=== PATIENT | female | born 1940 | race Caucasian/White ===

== ENCOUNTER 2017-06-07 20:01 | Emergency (ER) | payer MEDICARE, BC ==
[2017-06-07 20:06] VITALS: PULSE 79; RESP 18; O2SAT 98
[2017-06-07 20:19] VITALS: BMI 19.3
[2017-06-07 20:22] VITALS: BP 123/86; TEMP 98.3
--- NOTE | 2017-06-07 20:56 | C.PDOC ---
History Of Present Illness 77 y/o female presents to ED with c/o left knee pain for "years" which worsened over the last 3 days. Today, patient states that she felt a sharp pain in the left knee while getting off the bus. Worse with ambulation. Denies direct trauma, changes in sensation, or other associated symptoms. Time Seen by Provider: 06/07/17 20:40 Chief Complaint (Nursing): Lower Extremity Problem/Injury History Per: Patient, Family (son), Licensed Clinician (son) History/Exam Limitations: no limitations Onset/Duration Of Symptoms: Hrs, Persistent Current Symptoms Are (Timing): Worse Recent travel outside of the [place]: No Past Medical History Reviewed: Historical Data, Nursing Documentation, Vital Signs Vital Signs: Last Vital Signs Temp 98.3 F 06/07/17 20:05 Pulse 79 06/07/17 20:05 Resp 18 06/07/17 20:05 BP 123/86 06/07/17 20:05 Pulse Ox 98 06/07/17 21:21 Surgical History: Appendectomy Family History: States: Unknown Family Hx - Social History Hx Tobacco Use: No Hx Alcohol Use: No Hx Substance Use: No - Immunization History Hx Tetanus Toxoid Vaccination: No Hx Influenza Vaccination: Yes Hx Pneumococcal Vaccination: Yes Review Of Systems Except As Marked, All Systems Reviewed And Found Negative. Constitutional: Negative for: Fever, Chills Respiratory: Negative for: Cough Musculoskeletal: Positive for: Other (Left Knee Pain) Skin: Negative for: Rash Neurological: Negative for: Weakness, Numbness Physical Exam - Physical Exam Appears: Non-toxic, No Acute Distress Skin: Normal Color, Warm, Dry Head: Atraumatic, Normacephalic Eye(s): bilateral: Normal Inspection, EOMI Nose: Normal Oral Mucosa: Moist Neck: Normal ROM, Supple Chest: Symmetrical Respiratory: No Accessory Muscle Use Gastrointestinal/Abdominal: Soft, No Tenderness Back: Normal Inspection Extremity: Normal ROM, Tenderness (diffuse), Capillary Refill (< 2 sec. ), No Deformity, No Swelling Extremity: Bilateral: Normal Color And Temperature Pulses: Left Dorsalis Pedis: Normal, Right Dorsalis Pedis: Normal Neurological/Psych: Oriented x3, Normal Motor, Normal Sensation ED Course And Treatment O2 Sat by Pulse Oximetry: 98 (RA) Pulse Ox Interpretation: Normal Progress Note: Left knee x-rays ordered and reviewed; negative for acute fx. Tylenol given. Knee brace apllied by geotechnical department manager. Offered crutches, pt erquested cane. Instructed outpt follow up. Disposition - Disposition Referrals: Deisy Norris [Primary Care Provider] - Mauricio Finch III, MD [Staff Provider] - Disposition: HOME/ ROUTINE Disposition Time: 21:19 Condition: STABLE Additional Instructions: Vaya a lange mdico o la clnica en 1-3 kilgore sin falta, para mas evaluacin. [place] los medicamentos divine indicado. Volver a la gail de emergencia en cualquier momento si los sntomas persisten o empeoran. 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 - Scribe Statement The provider has reviewed the documentation as recorded by the Scribe SM All medical record entries made by the Scribe were at my direction and personally dictated by me. I have reviewed the chart and agree that the record accurately reflects my personal performance of the history, physical exam, medical decision making, and the department course for this patient. I have also personally directed, reviewed, and agree with the discharge instructions and disposition.
--- NOTE | 2017-06-08 08:37 | RAD ---
PROCEDURE: Left Knee Radiographs. HISTORY: Pain. COMPARISON: None. FINDINGS: BONES: . No fracture. JOINTS: Medial femoral tibial mild osteoarthritis. JOINT EFFUSION: None. OTHER FINDINGS: None. IMPRESSION: Mild osteoarthrosis medial femoral tibial compartment
== END 2017-06-07 21:45 | disposition home or self-care (01) ==
LOC: SUPCPDRO 20:01 → C.ER 20:01
DX: S83.92XA Sprain of unspecified site of left knee, initial encounter (principal); X58.XXXA Exposure to other specified factors, initial encounter

== ENCOUNTER 2018-07-24 19:41 | Emergency (ER) | payer MEDICARE, BC ==
[2018-07-24 19:41] VITALS: BMI 19.3
[2018-07-24] MEDS ORDERED: Aspirin 325 mg EC Tablets PO STA (20:08)
--- NOTE | 2018-07-24 20:08 | C.PDOC ---
Time Seen by Provider: 07/24/18 20:07 Chief Complaint (Nursing): Chest Pain Past Medical History Reviewed: Historical Data, Nursing Documentation, Vital Signs Vital Signs: Last Vital Signs Temp 99.5 F 07/24/18 19:44 Pulse 15 L 07/24/18 19:44 Resp 20 07/24/18 19:44 BP 123/92 H 07/24/18 19:44 Pulse Ox 97 07/24/18 19:44 Surgical History: Appendectomy Family History: States: No Known Family Hx - Social History Hx Tobacco Use: No Hx Alcohol Use: No Hx Substance Use: No - Immunization History Hx Tetanus Toxoid Vaccination: No Hx Influenza Vaccination: Yes Hx Pneumococcal Vaccination: Yes ED Course And Treatment ECG: Interpreted By Me, Viewed By Me ECG Rhythm: Sinus Rhythm (95), Nonspecific Changes O2 Sat by Pulse Oximetry: 97 Pulse Ox Interpretation: Normal - Radiology CXR: Interpreted by Me, Viewed By Me Disposition Counseled Patient/Family Regarding: Studies Performed, Diagnosis - Disposition Disposition Time: 20:08 Condition: FAIR Forms: [employer] [facility] (Urdu)
[2018-07-24 20:20] LABS: BASO % 0.7 % (0.0-2.0); EOS # 0.2 K/uL (0.0-0.7); EOS % 4.1 % (0.0-4.0); HEMOGLOBIN 11.9 g/dL (11.0-16.0); LYMPH # 1.5 K/uL (1.0-4.3); LYMPH % 26.8 % (20.0-40.0); MEAN CORPUSCULAR HEMOGLOBIN 27.2 pg (27.0-31.0); MEAN CORPUSCULAR HGB CONC 33.3 g/dL (33.0-37.0); MEAN PLATELET VOLUME 9.7 fL (7.2-11.7); MONO # 0.7 K/uL (0.0-0.8); MONO % 12.8 % (0.0-10.0); NEUT # 3.2 K/uL (1.8-7.0); NEUT % 55.6 % (50.0-75.0); NRBC % 0.1 % (0.0-2.0); RBC 4.36 Mil/uL (3.80-5.20); RED CELL DISTRIBUTION WIDTH 15.1 % (11.5-14.5); WHITE BLOOD COUNT 5.8 K/uL (4.8-10.8)
[2018-07-24 20:23] LABS: MEAN CELL VOLUME 81.7 fL (81.0-99.0)
[2018-07-24 20:30] LABS: PROTHROMBIN TIME 10.5 SECONDS (9.7-12.2)
[2018-07-24 20:41] LABS: ALB/GLOB RATIO 1.2 (1.0-2.1); ALBUMIN 4.1 g/dL (3.5-5.0); ALT/SGPT 39 U/L (9-52); AST/SGOT 47 U/L (14-36); BLOOD UREA NITROGEN 19 mg/dL (7-17); CALCIUM 8.8 mg/dl (8.6-10.4); GFR NON-AFRICAN AMERICAN > 60
[2018-07-24 20:48] LABS: SQUAMOUS EPITHIAL < 1 /hpf (0-5); URINE BILIRUBIN NEGATIVE (NEGATIVE); URINE BLOOD NEGATIVE (NEGATIVE); URINE CLARITY Clear (Clear); URINE COLOR Straw (YELLOW); URINE GLUCOSE (UA) NORMAL (Normal); URINE LEUKOCYTE ESTERASE NEG Leu/uL (Negative); URINE PROTEIN NEGATIVE (NEGATIVE); URINE UROBILINOGEN NORMAL mg/dL (0.2-1.0)
[2018-07-24 20:50] LABS: B-TYPE NATRIURETIC PEPTIDE 147 pg/mL (0-900)
--- NOTE | 2018-07-24 21:40 | C.PDOC ---
History Of Present Illness 78 year old female presents to the ED for evaluation of a digitally and positionally reproducible left-sided chest wall pain which began 3 days ago. Patient also reports a dry, non-productive cough for 4 days. She denies history of lung or heart disease. Patient denies shortness of breath. Time Seen by Provider: 07/24/18 20:07 Chief Complaint (Nursing): Chest Pain History Per: Patient History/Exam Limitations: no limitations Onset/Duration Of Symptoms: Days Current Symptoms Are (Timing): Still Present Quality: "Pain" Additional History Per: Patient Past Medical History Reviewed: Historical Data, Nursing Documentation, Vital Signs Vital Signs: Last Vital Signs Temp 99.5 F 07/24/18 19:44 Pulse 79 07/24/18 20:46 Resp 20 07/24/18 20:46 BP 129/82 07/24/18 20:46 Pulse Ox 100 07/24/18 20:46 - Medical History PMH: No Chronic Diseases Surgical History: Appendectomy Family History: States: Unknown Family Hx - Social History Hx Tobacco Use: No Hx Alcohol Use: No Hx Substance Use: No - Immunization History Hx Tetanus Toxoid Vaccination: No Hx Influenza Vaccination: Yes Hx Pneumococcal Vaccination: Yes Review Of Systems Cardiovascular: Positive for: Chest Pain (left-sided ) Respiratory: Positive for: Cough. Negative for: Shortness of Breath, Sputum Physical Exam - Physical Exam Appears: Non-toxic, No Acute Distress, Other (anxious ) Skin: Normal Color, Warm, Dry Head: Atraumatic, Normacephalic Eye(s): bilateral: Normal Inspection Oral Mucosa: Moist Neck: Supple Chest: Symmetrical, No Deformity, Tenderness (Digitally and positionally reproducible pain to left intercostal space from T5 to mid-axillary line ) Cardiovascular: Rhythm Regular, No Murmur Respiratory: Normal Breath Sounds, No Rales, No Rhonchi, No Wheezing Extremity: Normal ROM, Capillary Refill (less than 2 seconds ) Neurological/Psych: Oriented x3, Normal Speech, Normal Cognition ED Course And Treatment - Laboratory Results Result Diagrams: 07/24/18 20:15 07/24/18 20:15 Lab Interpretation: Normal (bnp/trop neg.) ECG: Interpreted By Me, Viewed By Me ECG Rhythm: Sinus Rhythm ECG Interpretation: Normal Interpretation Of ECG: Normal sinus rhythm at rate 95bpm. Rate From EC O2 Sat by Pulse Oximetry: 100 (on RA) Pulse Ox Interpretation: Normal - Radiology CXR: Interpreted by Me CXR Interpretation: Yes: No Acute Disease Progress Note: Bloodwork, urinalysis, CXR, EKG ordered and reviewed. Ice pack/Motrin Reevaluation Time: 21:41 Reassessment Condition: Improved Medical Decision Making Medical Decision Making: costochondritis L chest wall normal CXR/cardiac w/u, ekg Disposition Doctor Will See Patient In The: Office Counseled Patient/Family Regarding: Studies Performed, Diagnosis - Disposition Referrals: Kalee Whipple MD [Medical Doctor] - Disposition Time: 21:42 Condition: FAIR Additional Instructions: evaluacion cardiaco NEGATIVO [place] 1/2 hora por hora, nada caliente Ibuprofeno 400-600 mg cada 6 horas divine necessario no levanda nada pesada por 1 semana. Instructions: Costochondritis Forms: [employer] (Gambian) Print Language: [place] - Clinical Impression Clinical Impression: Chest wall discomfort - Scribe Statement The provider has reviewed the documentation as recorded by the Scribe (Valerie Ayon) Provider Attestation: All medical record entries made by the Scribe were at my direction and personally dictated by me. I have reviewed the chart and agree that the record accurately reflects my personal performance of the history, physical exam, medical decision making, and the department course for this patient. I have also personally directed, reviewed, and agree with the discharge instructions and disposition.
[2018-07-24 21:53] VITALS: BP 129/83; PULSE 67; RESP 18; TEMP 98.4; O2SAT 97
--- NOTE | 2018-07-25 07:40 | RAD ---
Chest x-ray single frontal view HISTORY: Chest pain. COMPARISON: None available. Findings: Biapical pleural thickening. Hyperinflation suggestive for COPD and or emphysematous changes. Mild venous congestion. Bibasilar breast and nipple shadows. Nodular density at the left lung base likely represents nipple shadow. Degenerative changes in the spine and shoulders. Impression: Hyperinflation suggestive for COPD and or emphysematous changes. Mild venous congestion. Bibasilar breast and nipple shadows. Nodular density at the left lung base likely represents nipple shadow. Degenerative changes in the spine and shoulders.
--- NOTE | 2018-07-27 05:10 | CARD ---
APPROVED REPORT Date of service: 07/24/2018 EKG Measurement Heart [id number] NM [id number] <Conclusion> Normal sinus rhythm Normal ECG
== END 2018-07-24 22:02 | disposition home or self-care (01) ==
LOC: C.ER 19:41
DX: R07.89 Other chest pain (principal)